=== PATIENT | male | born 1930 | race Caucasian/White ===

== ENCOUNTER 2016-10-19 13:50 | Day surgery (SDC) | payer MEDICARE, BC ==
[~2016-10-19] VITALS: Ht 182.9 cm; Wt 75.5 kg
[~2016-10-19 13:50] MED LIST: CEFTIN500 MG PO; COMPAZINE 110 MG/TAB PEG; DIFLUCAN 100MG100 MG PEG; HYGROTON25 MG PO; KLOR-CON 1010 MEQ PO; MILK OF MAGNESI30 ML PEG; MIRALAX PA17 GM/Dose PEG; NORCOELIX PEG; PRIL40 PEG; PRIL40 PO; PROSCAR 5MG5 MG PO; PROZAC 10MG10 MG PO; RAPAFLO8 MG PO; UROXATRAL10 M1 PEG; UROXATRAL10 M1 PO; ZOCOR 40MG40 MG PEG; ZOCOR 40MG40 MG PO
[2016-10-19 14:25] VITALS: BP 152/89; PULSE 77; TEMP 97.7
[2016-10-19] MEDS ORDERED: TIROSINT75 MC1 PO (17:10)
[2016-10-19] MEDS ORDERED: PRILOSEC 20MG20 MG PO (17:11)
[2016-10-19] MEDS ORDERED: MILK OF MA400 MG/52 PO (17:11)
[2016-10-19] MEDS ORDERED: ZYRTEC5 MG PO (17:12)
[2016-10-19] MEDS ORDERED: LIQUIFILM TEARS15 ML OU (17:13)
[2016-10-19] MEDS ORDERED: TYLENOL 500MG500 MG PO (17:14)
[2016-10-19] MEDS ORDERED: GENTLE LAXATIVE10 MG RC (17:15)
[2016-10-19] MEDS ORDERED: IPRATROPIUM BROM3 M1 IH (17:15)
[2016-10-19] MEDS ORDERED: MOTRIN 200200 MG/TAB PO (17:16)
[2016-10-19 17:50] VITALS: BP 125/78; PULSE 79; TEMP 97.6
[2016-10-19 18:15] VITALS: BP 116/66; PULSE 78
[2016-10-19 18:50] VITALS: BP 123/75; PULSE 77; TEMP 98
[2016-10-19 18:59] VITALS: BP 115/70; PULSE 79; TEMP 98.5
== END 2016-10-19 20:13 ==
LOC: SDCO 13:50 → SURG 19:37 → SDCO 20:13
DX: N47.2 Paraphimosis (principal); C15.9 Malignant neoplasm of esophagus, unspecified; C79.31 Secondary malignant neoplasm of brain; E78.5 Hyperlipidemia, unspecified; I10 Essential (primary) hypertension; N40.1 Benign prostatic hyperplasia with lower urinary tract symptoms; R33.9 Retention of urine, unspecified; L57.0 Actinic keratosis; M48.06 Spinal stenosis, lumbar region; K44.9 Diaphragmatic hernia without obstruction or gangrene
CPT/HCPCS: OP; J2405; J2704; J3010; J7030